=== PATIENT | male | born 1985 | race Caucasian/White ===

== ENCOUNTER 2016-10-24 05:13 | Emergency (ER) | payer SELFPAY ==
[2016-10-24] MEDS ORDERED: Lidocaine 1%* 5 ML VIAL INJ ONE (05:41)
[2016-10-24] MEDS ORDERED: Tetan/Diph/Pertus SYR(Tdap)* 0.5 ML SYR(BOOSTRIX) use SYR IM ONE (05:42)
[2016-10-24] MEDS ORDERED: Lidocaine 1%* 5 ML VIAL ONE (05:43)
[2016-10-24] MEDS ORDERED: Bacitracin OINTMENT* 1 TUBE TOPICAL ONE (06:02)
--- NOTE | 2016-10-24 06:48 | ED ---
I, Reinaldo,Arthur, scribed for James Cruz MD on 10/24/16 at 0548 . Laceration/Wound HPI - HPI Summary HPI Summary: This 31 y/o male presents to ED for right thumb laceration since 0030 AM. Pt was working with electrical conduit when he lacerated his thumb on metal. Pt states the metal was not perfecto. Bleeding is currently controlled. Negative numbness/tingling. He initially dismissed the laceration, until wound kept re- opening and bleeding. Pt is unsure if he is UTD tetanus shot. - History of Current Complaint Stated Complaint: THUMB LAC Hx Obtained From: Patient Onset/Duration: Sudden Onset, Still Present Aggravating: Movement Alleviating: Compression Timing: Constant Pain Intensity: 0 Pain Scale Used: 0-10 Numeric Associated Signs & Symptoms: Negative - Allergy/Home Medications Allergies/Adverse Reactions: Allergies Allergy/AdvReac Type Severity Reaction Status Date / Time No Known Allergies Allergy Verified 10/24/16 05:15 PMH/Surg Hx/FS Hx/Imm Hx Cardiovascular History: Denies: Hx Hypertension Sensory History: Denies: Hx Legally Blind Infectious Disease History: No Infectious Disease History: Denies: Traveled Outside the [place] in Last 30 Days - Social History Alcohol Use: Occasionally Hx Substance Use: No Substance Use Type: Reports: None Hx Tobacco Use: Yes Smoking Status (MU): Current Every Day Smoker Review of Systems Negative: Fever Positive: Other - laceration at RUE #1 digit All Other Systems Reviewed And Are Negative: Yes Physical Exam - Summary Physical Exam Summary: The patient is well-nourished in no acute distress and in no acute pain. The skin is warm and dry and skin color reflects adequate perfusion. 2 cm legnth x 2 mm wide laceration on RUE #1 digit on proximal dorsal aspect. Laceration enter subcutanoues fat. Lungs are CTA. Heart is RRR. Finger: Full range of motion at PIP and DIP joint of RUE #1 digit. Neurological: Strength and ROM intact at RUE #1 digit. Sensation intact. Psychiatric: The patient has an appropriate affect and does not exhibit any anxiety or depression. Triage Information Reviewed: Yes Vital Signs On Initial Exam: Initial Vitals Temp Pulse Resp BP Pulse Ox 97.4 F 90 16 157/93 96 10/24/16 05:15 10/24/16 05:15 10/24/16 05:15 10/24/16 05:15 10/24/16 05:15 Vital Signs Reviewed: Yes Procedures - Procedure Summary Procedure Summary: Timeout at 0541 AM in presence of ALEX Gonzalez. - Laceration/Wound Repair 1 Location: upper extremity - RUE #1 digit proximal dorsum aspect Description: Linear Anesthesia: 1.0% - 3 cc, Lido Length, Depth and Shape: 2 cm (length) x 2 mm (width), linear Betadine Prep?: Yes Laceration/Wound Explored: clean Suture Type: Prolene - prolene 4-0 x4. Diagnostics - Vital Signs Vital Signs Temp Pulse Resp BP Pulse Ox 10/24/16 05:15 97.4 F 90 16 157/93 96 - Laboratory Lab Statement: Any lab studies that have been ordered have been reviewed, and results considered in the medical decision making process. Laceration Repair Course/Dx - Course Assessment/Plan: This 31 y/o male presents to ED for right thumb laceration that occurred while working with electrical conduit at 0030 AM tonight. Laceration is located on proximal dorsum of the digit and is 2 cm long and 2 mm wide. Laceration repair was done in ED. Pt is discharged with instruction regarding dressing, wound care, and outpatient f/u. Wound was explored and did not exposre the tendon and was in the subcutaneous fat. - Clinical Impression Provider Diagnoses: 2 cm laceration s/p repair Discharge - Discharge Plan Condition: Stable Disposition: HOME Prescriptions: Oxycodone W/ Acetaminophen [Percocet 7.5-325 mg (NF)] 1 tab PO Q6H PRN #20 tab MDD 4 PRN Reason: pain Patient Education Materials: Laceration (ED) Referrals: Ana Vega MD [Medical Doctor] - 2 Days Additional Instructions: Leave the dressing in place for 48 hours. After removing the dressing, cleanse the wound with warm water two times a day. Apply Bacitracin. Cover the wound when working. Air dry when sleeping. Tetanus shot has been given during this ED visit. The documentation as recorded by the Reinaldo lee Soohyun accurately reflects the service I personally performed and the decisions made by , James Cruz MD.
== END 2016-10-24 06:25 | disposition home or self-care (01) ==
LOC: ED 05:13
DX: S61.011A Laceration without foreign body of right thumb without damage to nail, initial encounter (principal); W26.9XXA Contact with unspecified sharp object(s), initial encounter; Y93.9 Activity, unspecified; Y92.89 Other specified places as the place of occurrence of the external cause; F17.210 Nicotine dependence, cigarettes, uncomplicated
CPT/HCPCS: 90471; 90715; 96374; 99282; A9270-GY